=== PATIENT | male | born 1970 | race Caucasian/White ===

== ENCOUNTER 2021-10-07 13:20 | Outpatient (REF) | payer OTHER, SELFPAY ==
[2021-10-07 14:53] LABS: Hemoglobin 16.2 g/dl (14.0-18.0); Mean Corpuscular HGB Conc 31.8 g/dl (31.0-36.0); Mean Corpuscular Hemoglobin 27.9 pg (27.0-33.0); Mean Corpuscular Volume 87.9 fL (80.0-98.0); Mean Platelet Volume 9.2 fL (9.4-12.4); Platelet Count 322 X10*3/uL (160-400); Red Cell Distribution Width 13.5 % (11.0-16.0); White Blood Count 7.8 X10*3/uL (4.8-10.8)
[2021-10-07 15:20] LABS: Iron 72 mcg/dL (45-160); Percent Iron Saturation 15 % (15-50); Total Iron Binding Capacity 466 mcg/dL (228-428); Unsaturated Iron Binding 394 ug/dL
[2021-10-07 15:58] LABS: Ferritin 124 ng/mL (20-250)
== END 2021-10-07 13:21 | disposition home or self-care (01) ==
LOC: HO.LAB 13:20
PROVIDERS: PCP Family Medicine; Visit Provider Nurse Practitioner Family
DX: D64.9 Anemia, unspecified (principal); G25.81 Restless legs syndrome; G47.33 Obstructive sleep apnea (adult) (pediatric); G47.10 Hypersomnia, unspecified; Z79.899 Other long term (current) drug therapy
CPT/HCPCS: 36415; 82728; 83540; 85027

== ENCOUNTER → 2022-08-11 12:51 | Outpatient (BNVA) | payer MEDICAID, SELFPAY | PROVIDERS: Visit Provider Nurse Practitioner Family | DX: G47.33 Obstructive sleep apnea (adult) (pediatric) (principal); G47.10 Hypersomnia, unspecified; G25.81 Restless legs syndrome; Z79.899 Other long term (current) drug therapy | CPT/HCPCS: 99212 ==

== ENCOUNTER → 2022-12-08 10:51 | Outpatient (REF) | payer OTHER, SELFPAY ==
--- NOTE | 2022-12-08 13:18 | ECG_ITS ---
Test Reason : CARDIAC ARRHYTHMIA Blood Pressure : / mmHG Vent. Rate : 097 BPM Atrial Rate : 097 BPM P-R Int : 126 ms QRS Dur : 092 ms QT Int : 322 ms P-R-T Axes : 053 074 039 degrees QTc Int : 408 ms Normal sinus rhythm Normal ECG No previous ECGs available Referred By: Kaylie Alexander Electronically Signed By:BRIANNA ANDRADE
== END ==
LOC: HO.CARD 10:51
PROVIDERS: PCP Physician Assistant Medical; Visit Provider Nurse Practitioner Family
DX: I10 Essential (primary) hypertension (principal); I49.9 Cardiac arrhythmia, unspecified; G47.33 Obstructive sleep apnea (adult) (pediatric); G25.81 Restless legs syndrome; G47.10 Hypersomnia, unspecified; Z79.899 Other long term (current) drug therapy; Z99.89 Dependence on other enabling machines and devices
CPT/HCPCS: 93005; 99212

== ENCOUNTER → 2022-12-25 12:49 | Outpatient (REF) | payer OTHER, SELFPAY ==
--- NOTE | 2022-12-25 12:52 | HM_ITS ---
Conclusion: 1. Patient was monitored for total period of 2 days 2. Baseline was normal sinus rhythm with average heart rate of 81 beats per minute 3. Occasional PVCs noted with total burden of 0.14% 4. No significant pauses or bradycardia noted 5. Patient marked 2 events with reported chest pain that correlated with sinus rhythm MTDD
== END ==
LOC: HO.CARD 12:49
PROVIDERS: Visit Provider Nurse Practitioner Family
DX: I49.9 Cardiac arrhythmia, unspecified (principal); I10 Essential (primary) hypertension; I49.3 Ventricular premature depolarization
CPT/HCPCS: 93225

== ENCOUNTER 2023-04-05 13:03 | Outpatient (AMB) | payer OTHER, SELFPAY ==
--- NOTE | 2023-04-05 13:03 | MHC.OFFVIS ---
Intake Intake Visit Reasons: 4m follow up - Confirmed Intake Note: Patient states no issues or concerns Allergies Penicillins Allergy (Verified 04/05/23 13:03) Rash Medication List - Last Reconciled 04/05/23 by TOBY Villeda ascorbic acid (vitamin C) 250 mg PO BID 30 days calcium carb-vitamin D3-vit K2 500 mg calcium- 200 unit-90 mcg 2 tabs in the AM, 1 in the Evening. dextroamphetamine-amphetamine 20 mg (Adderall) 20 mg PO DAILY 30 days dextroamphetamine-amphetamine 30 mg ER 30 mg PO QAM 30 days docusate sodium 100 mg PO BID PRN 30 days gabapentin 900 mg PO BID losartan 100 mg PO DAILY metoprolol succinate ER 50 mg PO DAILY ropinirole 1 mg PO BID rotigotine (Neupro) 1 patch topical DAILY simvastatin 20 mg PO DAILY testosterone cypionate mg IM venlafaxine ER 75 mg PO DAILY venlafaxine ER 37.5 mg PO DAILY HPI HPI Comments History of Present Illness Details 52-yr-old male presents for f/u televideo visit, Pt endorses the following interval medical history changes: He underwent cervical repair in January- since he has right arm weakness, and more recently left leg weakness- especially if having taken even a short car ride. He is trying to do some exercises, but finds he is too weak. He plans to talk to his surgeon about this.. He states his daytime sleepiness is stable. He is only taking the Adderal ER 30mg qam and IR 20mg qpm- which seems to be working well. The 10mg ER was not filled, but states he is doing ok without it. He sates his restless legs are overall stable- sometimes may have jumpy legs during the day. Pt reports he is compliant w/ CPAP. He sleeps well w/ CPAP, occasionally may wake up in the middle of the night for no reason. He is receiving CPAP supplies routinely. 12/08/22, EKG: Blood Pressure : / mmHG Vent. Rate : 097 BPM Atrial Rate : 097 BPM P-R Int : 126 ms QRS Dur : 092 ms QT Int : 322 ms P-R-T Axes : 053 074 039 degrees QTc Int : 408 ms Normal sinus rhythm Normal ECG No previous ECGs available 12/25/22, Holter 2 day: Conclusion: 1. Patient was monitored for total period of 2 days 2. Baseline was normal sinus rhythm with average heart rate of 81 beats per minute 3. Occasional PVCs noted with total burden of 0.14% 4. No significant pauses or bradycardia noted 5. Patient marked 2 events with reported chest pain that correlated with sinus rhythm [facility] Surgical History (Updated 04/05/23 @ 13:04 by JOLIE Holly) H/O neck surgery History of knee surgery Family History Father No problems noted. Mother No problems noted. Social History Alcohol intake: current Alcohol intake frequency: holidays/special occasions only Patient Tobacco Use Status: Never used Tobacco Current occupational status: retired and disabled Review of Systems Const All systems reviewed & are unremarkable except as noted in HPI and below Physical Exam Const General: cooperative and no acute distress Orientation/consciousness: patient oriented x3 Resp Effort & Inspection: normal respiratory effort and able to speak in complete sentences Neuro General: patient oriented x3 Cognition (Neuro): normal cognition Psych Appearance: grossly normal Mental Status: mental status grossly normal Affect: normal affect Attitude: cooperative Thought process: Normal thought process present Assessment & Plan Assessment & Plan (1) Obstructive sleep apnea: Code(s): G47.33 - Obstructive sleep apnea (adult) (pediatric) (2) Hypersomnia: Code(s): G47.10 - Hypersomnia, unspecified (3) Restless leg syndrome: Code(s): G25.81 - Restless legs syndrome Plan Advised pt to f/u w/ neurosurgeon regarding ongoing RUE weakness and newer LLE weakness- ? PT. Continue Adderal 30mg ER qam and 20mg IR q afternoon. Continue Ropinirole 0. 5 mg bid - tid. Neupro patch 2 mg qd. Gabapentin 300mg 3 tabs bid. Future considerations- Sunosi- EKG and 2 day Holetr- reassuring. MSLT- could be considered. f/u in 4 months or sooner prn new/worsening s/s. Medications: Discontinued dextroamphetamine-amphetamine 10 mg ER take w/ 30mg ER cap to total 40mg qam. Partial Fill upon patient request. Discontinued Reason: Patient no longer taking 10 mg PO QAM 30 days 30 caps 0RF Telehealth Telehealth Location of provider rendering services: practice address Location of patient: address on file Patient Identification confirmed using: Name, : Yes Telehealth method: video Patient verbally consented to treatment: Yes Patient verbally consented to billing insurance company: Yes Patient informed of any privacy concerns related to visit: Yes Minutes spent on Phone/Video with Pt.: 15 Coding Level of Care Code Tele Est Pt Level 4 (80124) Diagnoses Obstructive sleep apnea G47.33 Hypersomnia G47.10 Restless leg syndrome G25.81
== END 2023-04-05 16:00 ==
PROVIDERS: PCP Family Medicine; Visit Provider Nurse Practitioner Family
DX: G47.33 Obstructive sleep apnea (adult) (pediatric) (principal); G47.10 Hypersomnia, unspecified; G25.81 Restless legs syndrome
CPT/HCPCS: 99214

== ENCOUNTER → 2023-04-05 13:03 | Outpatient (BNVA) | payer OTHER, SELFPAY | PROVIDERS: PCP Family Medicine; Visit Provider Nurse Practitioner Family | DX: I49.9 Cardiac arrhythmia, unspecified (principal); I10 Essential (primary) hypertension ==